=== PATIENT | female | born 1995 | race Caucasian/White ===

== ENCOUNTER 2016-10-23 20:49 | Emergency (ER) | payer OTHER ==
[2016-10-23 21:16] VITALS: BP 140/81; PULSE 98; RESP 18; TEMP 98.2; O2SAT 98
--- NOTE | 2016-10-23 21:56 | EDPHY ---
H & P Stated Complaint: fall off fence/roof l wrist deformity and r ankle pain Time Seen by Provider: 10/23/16 21:02 HPI/ROS: Chief complaint: Left wrist and right ankle pain after fall History of present illness: This is a 21-year-old female who presents to the emergency department for evaluation treatment of left wrist and right ankle pain after sustaining a fall. Patient was on the roof of a house when she fell off, approximately 10 feet. States she was able to easily get back up after falling but knows that her wrist and ankle were hurting her. She has been able to ambulate since then pain has persisted. Patient denies other associated signs or symptoms including no paresthesias or abnormal coolness in the extremities. She denies trauma to or pain in the head, neck, back, chest abdomen pelvis or other extremities other than described above. Review of systems: 10 point review of systems was obtained and other than described above was negative - Personal History LMP (Females 10-55): IUD In Place Current Tetanus/Diphtheria Vaccine: Yes Current Tetanus Diphtheria and Acellular Pertussis (TDAP): Yes - Medical/Surgical History Hx Asthma: No Hx Chronic Respiratory Disease: No Hx Diabetes: No Hx Cardiac Disease: No Hx Renal Disease: No Hx Cirrhosis: No Hx Alcoholism: No Hx HIV/AIDS: No Hx Splenectomy or Spleen Trauma: No - Social History Smoking Status: Never smoked - Physical Exam Exam: General Appearance: Alert, nontoxic Eyes: PERRLA, EOM intact ENT: No hemotympanum, no mohamud sign, no raccoon eyes Respiratory: Lungs clear to auscultation bilaterally Cardiac: Regular rate and rhythm. Gastrointestinal: Bowel sounds normal. Abdomen soft, nondistended, nontender. Neurological: Alert and oriented x4. Cranial nerves 2-12 grossly intact. Strength and sensation intact and symmetrical. Skin: Abrasion to the left elbow. Musculoskeletal: Head is normocephalic, atraumatic. The spine is nontender to palpation along its entire length, there is no crepitus, bony deformity or step- off appreciated. Chest wall intact palpation. There is tenderness over the left wrist. She has difficulty moving it. She is moving the digits of the left hand as well as the rest of the left upper extremity without difficulty. Tenderness diffusely to the right ankle. She is moving it well. There is no tenderness or defect over the Achilles. She is moving the digits in the foot. The rest of the right lower extremities unremarkable. Other extremities unremarkable. Constitutional: Initial Vital Signs Temperature (C) 36.8 C 10/23/16 21:13 Heart Rate 98 10/23/16 21:13 Respiratory Rate 18 10/23/16 21:13 Blood Pressure 140/81 H 10/23/16 21:13 O2 Sat (%) 98 10/23/16 21:13 O2 Delivery Mode Room Air Allergies/Adverse Reactions: amoxicillin Allergy (Verified 10/23/16 21:13) Sulfa (Sulfonamide Antibiotics) Allergy (Verified 10/23/16 21:13) Home Medications: Medication Instructions Recorded Hydrocodone/APAP 5/325 [[place] 1 tab PO Q6H #15 tab 10/23/16 5/325 (*)] Merena 10/23/16 Medical Decision Making - Diagnostics Imaging: X-ray series of the left wrist reveals distal radius fracture with intra- articular extension, see report for complete details X-ray series of the right ankle is negative Procedures: Procedure: Splint placement. A sugar-tong splint was applied. After application of the splint I returned and re-examined the patient. The splint was adequately immobilizing the joint and distal to the splint the patient's circulation and sensation was intact. Patient is placed in a sling. ED Course/Re-evaluation: Patient seen under the supervision of my primary supervising physician Dr. Emily Miramontes. Patient presents to the emergency department after falling off the roof of a house, approximately 10 feet and injuring her left wrist and hand. The areas distal to the injuries are neurovascularly intact. X-rays are obtained she does have a distal radius fracture. This is splinted. By history and physical exam I do not appreciate evidence of trauma to other parts of the body. Patient states she is feeling well at discharge. She is discharged with friends. She is referred to Orthopedics for continued evaluation and care. Home care is discussed. Return precautions are given. Patient voiced understanding and agreement with plan. Differential Diagnosis: Included but not limited to contusion, sprain or strain, bony fracture, joint dislocation Departure - Departure Disposition: Home, Routine, Self-Care Clinical Impression: Wrist fracture Qualifiers: Encounter type: initial encounter Fracture type: closed Laterality: left Qualified Code(s): S62.102A - Fracture of unspecified carpal bone, left wrist, initial encounter for closed fracture Ankle sprain Qualifiers: Encounter type: initial encounter Involved ligament of ankle: unspecified ligament Laterality: right Qualified Code(s): S93.401A - Sprain of unspecified ligament of right ankle, initial encounter Condition: Good Instructions: Ankle Sprain (ED), Wrist Fracture in Adults (ED) Additional Instructions: Follow-up with Orthopedics next week for continued evaluation and care In regards to pain control see the following: Use ibuprofen [600] mg [3] times a day for the next 2-3 days for pain In addition You have been prescribed [[place]] for pain. [[place]] contains Tylenol, do not take extra Tylenol/acetaminophen/Apap with it. It is sedating. If symptoms worsen or new symptoms develop return to the emergency room for recheck Referrals: NONE *PRIMARY CARE P,. [Primary Care Provider] - As per Instructions Otto Foley MD [Medical Doctor] - As per Instructions Prescriptions: Hydrocodone/APAP 5/325 [[place] 5/325 (*)] 1 tab PO Q6H #15 tab
== END 2016-10-23 22:23 | disposition home or self-care (01) ==
DX: S52.502A Unspecified fracture of the lower end of left radius, initial encounter for closed fracture (principal); S93.401A Sprain of unspecified ligament of right ankle, initial encounter; W13.2XXA Fall from, out of or through roof, initial encounter
CPT/HCPCS: A4565